=== PATIENT | female | born 1950 | race Two or more races ===

== ENCOUNTER 2018-10-24 11:05 | Emergency (ER) | payer OTHER, SELFPAY ==
[~2018-10-24] VITALS: Ht 144.8 cm; Wt 63.7 kg
[2018-10-24] MEDS ORDERED: METHOCARBAMOL 750 MG TABLET PO ONE (11:30)
[2018-10-24] MEDS ORDERED: ONDANSETRON ODT 4 MG PO ONE (11:30)
[2018-10-24] MEDS ORDERED: HYDROcodone/APAP 5/325 TABLET PO ONE (11:30)
[2018-10-24] MEDS ORDERED: KETOROLAC 30 MG/1 ML IM ONE (11:30)
[2018-10-24] MEDS ORDERED: ONDANSETRON ODT 4 MG ONE (11:37)
[2018-10-24] MEDS ORDERED: METHOCARBAMOL 750 MG TABLET ONE (11:37)
[2018-10-24] MEDS ORDERED: HYDROcodone/APAP 5/325 TABLET ONE (11:37)
[2018-10-24] MEDS ORDERED: KETOROLAC 30 MG/1 ML ONE (11:37)
--- NOTE | 2018-10-24 12:10 | NUR ---
RECEIVED REPORT FROM LITO FELIX. CARE ASSUMED OF PT IN RME. A&OX4. RESTING COMFORTABLY, DENIES NEED TO USE RESTROOM. ALL NEEDS MET AND ADDRESSED, AWAITING RECHECK FROM RODRIGO NELSON. CALL LIGHT IN REACH. FALL PRECAUTIONS IN PLACE. FAMILY AT BEDSIDE.
--- NOTE | 2018-10-24 12:23 | NUR ---
RODRIGO NELSON AT BEDSIDE FOR RECHECK
[2018-10-24 12:27] VITALS: BP 130/63
== END 2018-10-24 12:47 | disposition home or self-care (01) ==
LOC: ED 12:30
DX: M54.41 Lumbago with sciatica, right side (principal)
CPT/HCPCS: 72110; 96372; 99284; J1885; Q0162

== ENCOUNTER 2019-02-06 02:48 | Emergency (ER) | payer MEDICAID, OTHER ==
[~2019-02-06] VITALS: Ht 144.8 cm; Wt 65.4 kg
[2019-02-06 02:50] VITALS: BP 158/83
== END 2019-02-06 06:30 | disposition home or self-care (01) ==
LOC: ED 06:24
DX: S39.012A Strain of muscle, fascia and tendon of lower back, initial encounter (principal); M62.830 Muscle spasm of back; M54.30 Sciatica, unspecified side; X58.XXXA Exposure to other specified factors, initial encounter; Y93.89 Activity, other specified; Y92.89 Other specified places as the place of occurrence of the external cause; Y99.8 Other external cause status
CPT/HCPCS: 72110; 73552; 73564; 96372; 99283; J1885

== ENCOUNTER 2019-02-23 15:52 | Emergency (ER) | payer MEDICAID, MEDICARE, OTHER ==
[~2019-02-23] VITALS: Ht 134.6 cm; Wt 65.8 kg
[2019-02-23 15:55] VITALS: BP 149/68
== END 2019-02-23 18:03 | disposition home or self-care (01) ==
LOC: ED 16:08
DX: S16.1XXA Strain of muscle, fascia and tendon at neck level, initial encounter (principal); S29.012A Strain of muscle and tendon of back wall of thorax, initial encounter; S39.012A Strain of muscle, fascia and tendon of lower back, initial encounter; M51.34 Other intervertebral disc degeneration, thoracic region; M51.36 Other intervertebral disc degeneration, lumbar region; G89.11 Acute pain due to trauma; M25.561 Pain in right knee; R25.2 Cramp and spasm; X50.0XXA Overexertion from strenuous movement or load, initial encounter; Y93.89 Activity, other specified; Y92.89 Other specified places as the place of occurrence of the external cause; Y99.8 Other external cause status
CPT/HCPCS: 72050; 72072; 72110; 99283